=== PATIENT | male | born 1995 | race African-American/Black ===

== ENCOUNTER 2017-09-23 14:19 | Emergency (ER) | payer OTHER ==
[~2017-09-23] VITALS: Ht 167.6 cm; Wt 69.6 kg
[2017-09-23] MEDS ORDERED: KETOROLAC 30 MG/1 ML ONE (15:04)
[2017-09-23 15:28] LABS: BLOOD UREA NITROGEN 10 mg/dL (7-18)
[2017-09-23] MEDS ORDERED: KETOROLAC 30 MG/1 ML IM ONE (15:30)
[2017-09-23 15:33] LABS: IS PT STATUS REG ER OR PRE ER? YES
[2017-09-23 15:43] LABS: HEMATOCRIT 43.6 % (39.2-51.8); HEMOGLOBIN 14.4 g/dL (13.7-18.0); WHITE BLOOD COUNT 5.2 x10^3/uL (3.4-10)
[2017-09-23 15:44] LABS: DIFF TOTAL CELLS COUNTED 100 CELL DIFF
[2017-09-23 15:58] LABS: VERIFY COUNTS? YES
[2017-09-23 18:31] VITALS: BP 104/69
[2017-09-23] MEDS ORDERED: OMNIPAQUE 350 MG/ML, 100ML BOTTLE ONE (20:05)
== END 2017-09-23 19:20 | disposition home or self-care (01) ==
LOC: ED 16:31
DX: R07.2 Precordial pain (principal)
CPT/HCPCS: 36415; 71010; 71275; 80048; 82040; 83880; 84484; 85025; 85379; 93005; 96372; 99285; J1885; Q9967